=== PATIENT | female | born 1960 | race Caucasian/White ===

== ENCOUNTER → 2017-05-29 | Outpatient (CLI) | payer BC ==
[~2017-05-29] MED LIST: CETI10TA17 PO; CHLO-159 PO; ESTR1TAB24 PO; FEXO180T PO; FLX10C PO; MEDR2.5T6 PO; RNT150T PO
--- NOTE | 2017-05-29 14:50 | Diagnostic Imaging Report ---
INDICATION: Cough. TECHNIQUE: PA and lateral views of the chest were obtained. FINDINGS: The heart size, mediastinal configuration, and pulmonary vascularity are within normal limits. There is no pleural effusion, pneumothorax, or pneumonia. The osseous structures are unremarkable. IMPRESSION: No acute cardiopulmonary abnormality. Dictated by: Dictated on workstation # [id number]
--- NOTE | 2017-05-30 12:56 | Diagnostic Imaging Report ---
EXAMINATION: Digital mammogram bilateral screening. INDICATION: Screening. COMPARISON: 06/23/2015, 06/22/2014, 06/09/2013, and 05/27/2012. PERSONAL HISTORY: At this time, there are no current complaints. FINDINGS: The fibroglandular tissue in both breasts is dense. This does limit the sensitivity of this exam. As noted on the previous study, there are numerous calcifications scattered throughout the lateral aspect of each breast. These calcifications seem stable. The prior exam did suggest a nodular density deep in the left breast. That finding is again evident and does not seem to have changed significantly since the prior exam of 06/22/2014. The tomographic images suggest that this has a fairly smooth margin. I would recommend that ultrasound be performed to better characterize this finding. There is no primary or secondary sign of malignancy noted otherwise. IMPRESSION: Ultrasound would be recommended for further evaluation of the nodular density in the upper-outer aspect of the left breast. ACR BI-RADS Category 0: Incomplete. (Needs additional imaging evaluation). Result letter will be mailed to the patient. Note: At least 10% of breast cancer is not imaged by mammography. Dictated on workstation # [id number]
== END ==
LOC: RAD 14:28
PROVIDERS: ATTEND Obstetrics & Gynecology
DX: Z12.31 Encounter for screening mammogram for malignant neoplasm of breast (principal); R05 Cough
CPT/HCPCS: 71046; 77067

== ENCOUNTER → 2017-10-25 | Outpatient (CLI) | payer BC ==
--- NOTE | 2017-10-25 22:37 | Diagnostic Imaging Report ---
INDICATION: Abnormal mammogram. EXAMINATION: Ultrasound of the left breast. FINDINGS: The screening mammogram performed on 05/29/2017 noted a 1.5 cm nodular density deep in the left breast. This finding was felt to most likely benign but ultrasound was recommended to better characterize this density. On this study, however, there is no discrete solid or cystic mass evident. It is conceivable that the density seen on the mammogram was secondary to fibroglandular tissue alone although it does have the mammographic appearance of a discrete nodule. It is possible this was a cyst which has subsequently resolved. It may prove worthwhile to repeat the mammogram to determine whether that nodular density has changed.. IMPRESSION: 1. The apparent nodular density seen on the mammogram could not be identified on this study. Considerations and recommendations as above. 2. These results were discussed with Dr. Tucker Nunez. ACR BI-RADS Category 0: Incomplete. (Needs additional imaging evaluation). Result letter will be mailed to the patient. Note: At least 10% of breast cancer is not imaged by mammography. Dictated by: Dictated on workstation # [id number]
== END ==
LOC: RAD 11:51
PROVIDERS: ATTEND Obstetrics & Gynecology
DX: R92.8 Other abnormal and inconclusive findings on diagnostic imaging of breast (principal)
CPT/HCPCS: 76642

== ENCOUNTER → 2018-07-29 | Outpatient (CLI) | payer BC ==
--- NOTE | 2018-07-29 21:57 | Diagnostic Imaging Report ---
INDICATION: Routine screening. Comparison is made with prior mammogram from 05/29/2017 and 06/23/2015. 2-D and 3-D bilateral screening mammography was performed with a Computer Aided Detection (CAD) system. FINDINGS: Both breasts remain heterogeneously dense, limiting the sensitivity of mammography. Overall breast parenchymal pattern is stable. There are innumerable microcalcifications in the upper and outer portions of both breasts, limiting the sensitivity of mammography. A rounded density is less prominent in the left breast. No new mass is seen. Axillae are unremarkable. IMPRESSION: Stable bilateral mammograms when compared with prior exams. ACR BI-RADS Category 2: Benign findings. Result letter will be mailed to the patient. Note: At least 10% of breast cancer is not imaged by mammography. Dictated by: Dictated on workstation # [id number]
== END ==
LOC: RAD 12:11
PROVIDERS: ATTEND Obstetrics & Gynecology
DX: Z12.31 Encounter for screening mammogram for malignant neoplasm of breast (principal)
CPT/HCPCS: 77067

== ENCOUNTER 2018-09-23 08:52 | Outpatient (CLI) | payer BC ==
[~2018-09-23] VITALS: Ht 162.6 cm; Wt 59.0 kg
[2018-09-23] MEDS ORDERED: ATOR10TA66 PO (11:31)
[2018-09-23] MEDS ORDERED: CHOL100045 PO (11:31)
[2018-09-23] MEDS ORDERED: RANI150T11 PO (11:31)
[2018-09-23] MEDS ORDERED: ESTR1TAB24 PO (11:31)
[2018-09-23] MEDS ORDERED: CHLO4TAB36 PO (11:31)
[2018-09-23] MEDS ORDERED: TEST75GE7 TD (11:31)
[2018-09-23] MEDS ORDERED: ESCI10TA PO (11:31)
[2018-09-23] MEDS ORDERED: OMEG100032 PO (11:31)
[2018-09-23] MEDS ORDERED: CETI10TA17 PO (11:31)
[2018-09-23] MEDS ORDERED: MULT-240 PO (11:31)
== END 2018-09-23 11:36 | disposition home or self-care (01) ==
LOC: PREOP 08:52
PROVIDERS: ATTEND Obstetrics & Gynecology
DX: Z01.818 Encounter for other preprocedural examination (principal)

== ENCOUNTER 2018-10-01 11:10 | Day surgery (SDC) | payer BC ==
[~2018-10-01] VITALS: Ht 162.6 cm; Wt 59.0 kg
[2018-10-01] VITALS (15 sets, daily range): BP systolic 89–133; BP diastolic 55–80
--- NOTE | 2018-10-01 07:42 | Progress Note-Post Operative ---
Post-Operative Progess Note Surgeon (s)/Metal Bumper (s) Surgeon YENNY LEONARDO MD Metal Bumper: Yarelis Samaniego Pre-Operative Diagnosis Dysfunctional uterine bleeding/menorrhagia Post-Operative Diagnosis Same with extensive pelvic adhesions and with markedly abnormal appendix and with pathology pending Procedure & Operative Findings Date of Procedure 10/01/18 Procedure Performed/Findings TL H with BSO, extensive adhesiolysis, LAPAROscopic appendectomy Anesthesia Type GETA Estimated Blood Loss Estimated blood loss (mL): Minimal Specimens/Packing Specimens Removed Uterus and fallopian tubes and ovaries, appendix Packing: None YENNY LEONARDO MD October 01, 2018 07:42
--- NOTE | 2018-10-01 07:42 | Progress Note-Pre Operative ---
Pre-Operative Progress Note H&P Reviewed The H&P was reviewed, patient examined and no changes noted. Patient specifically requests BSO and would like appendix removed. Fully discussed both. Date Seen by Provider: October 01, 2018 Time Seen by Provider: 13:12 Date H&P Reviewed: October 01, 2018 Time H&P Reviewed: 13:12 Pre-Operative Diagnosis: Dysfunctional uterine bleeding/menorrhagia YENNY LEONARDO MD October 01, 2018 07:42
--- NOTE | 2018-10-01 07:47 | Discharge Instructions ---
Discharge Instructions Discharge Medications New, Converted or Re-Newed RX: RX on Chart Patient Instructions Patient Instructions: As directed Return to The Hospital For: As directed Activity & Diet Discharge Diet: No Restrictions Activity as Tolerated: No Orders-Post D/C & Referrals Follow Up Appt: Return to clinic on Saturday, October 03, 2018 at 930 a.m. for staple removal Call to make follow up appt. for patient in 4 weeks. Activity: Rest for 24 hours, than as tolerated. Wound Care: May remove Band-Aid tomorrow. Replace as desired. Keep incisions clean and dry. Wash daily with soap and water. Please call in RX to patient pharmacy. Diet: As tolerated-Clear Liquids only if nauseated. may shower or tub bathe as desired. No driving for 24 hours, no alcoholic beverages for 24 hours, and nothing per vagina (no tampons, douching, or intercourse) for 8 weeks. Patient to return to the clinic as soon as possible for: Temperature greater than 101F, Severe Pain, Foul discharge from incision or vagina, Excessive Bleeding (more than a period). YENNY LEONARDO MD October 01, 2018 07:47
[~2018-10-01 11:10] MED LIST changes: +ATOR10TA66 PO; +CHLO4TAB36 PO; +CHOL100045 PO; +DOCU-143 PO; +ESCI10TA PO; +ESTR1TAB27 PO; +IBUP-1780 PO; +MULT-240 PO; +OMEG100032 PO; +OXYC1TAB87 PO; +RANI150T11 PO; +TEST75GE7 TD
--- OUTSIDE RECORDS SUMMARY | 2018-10-01 11:13 | XMS REPORT | Continuity of Care Document ---
Author Organization Unknown Address Unknown Allergies Active Description Code Type Severity Reaction Onset Reported/Identified Relationship to Patient Clinical Status Yes No Known Drug Allergies [id number] Drug Allergy Unknown N/A 2013 Medications There is no data. 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 2013 MICHAEL DISLA MD Ot 553.3 DIAPHRAGMATIC HERNIA 2013 MICHAEL DISLA MD Ot V76.51 SCREEN MAL NEOP-COLON 07/08/2014 YENNY LEONARDO MD Ot V76.12 06/29/2015 YENNY LEONARDO MD Ot Z12.31 07/07/2015 YENNY LEONARDO MD Ot Z12.31 05/24/2017 Ot 793.82 INCONCLUSIVE MAMMOGRAM 05/24/2017 Ot V76.12 OTH SCREEN MAMMO-MALIGN NEOPLASM OF [place] 05/24/2017 NAIF RODRIGUEZ, MICHAEL Sandoval Ot V72.84 EXAM PRE-OPERATIVE NOS 05/28/2017 YENNY LEONARDO MD Ot 793.82 INCONCLUSIVE MAMMOGRAM 05/28/2017 YENNY LEONARDO MD Ot V76.12 OTH SCREEN MAMMO-MALIGN NEOPLASM OF [place] 05/28/2017 YENNY LEONARDO MD Ot V76.12 OTH SCREEN MAMMO-MALIGN NEOPLASM OF [place] 05/28/2017 YENNY LEONARDO MD Ot Z12.31 ENCNTR SCREEN MAMMOGRAM FOR MALIGNANT NE 05/29/2017 YENNY LEONARDO MD Ot R05 COUGH 05/29/2017 YENNY LEONARDO MD Ot Z12.31 ENCNTR SCREEN MAMMOGRAM FOR MALIGNANT NE 06/12/2017 YENNY LEONARDO MD, Ot R05 COUGH 06/12/2017 YENNY LEONARDO MD Ot Z12.31 ENCNTR SCREEN MAMMOGRAM FOR MALIGNANT NE 11/13/2017 YNENY LEONARDO MD Ot R92.8 OTH ABN AND INCONCLUSIVE FINDINGS ON DX 11/26/2017 Ot 780.79 11/26/2017 Ot 780.79 11/26/2017 Ot 789.01 ABDOMINAL PAIN, RIGHT UPPER QUADRANT 11/26/2017 Ot V76.12 OTH SCREEN MAMMO-MALIGN NEOPLASM OF [place] 11/26/2017 Ot 789.01 ABDOMINAL PAIN, RIGHT UPPER QUADRANT 11/26/2017 Ot 793.82 INCONCLUSIVE MAMMOGRAM 11/26/2017 Ot V76.12 OTH SCREEN MAMMO-MALIGN NEOPLASM OF [place] 11/26/2017 MICHAEL DISLA MD Ot V72.84 EXAM PRE-OPERATIVE NOS 11/26/2017 YENNY LEONARDO MD Ot 793.82 INCONCLUSIVE MAMMOGRAM 11/26/2017 YENNY LEONARDO MD Ot V76.12 OTH SCREEN MAMMO-MALIGN NEOPLASM OF [place] 11/26/2017 YENNY LEONARDO MD Ot V76.12 OTH SCREEN MAMMO-MALIGN NEOPLASM OF [place] 11/26/2017 YENNY LEONARDO MD Ot Z12.31 ENCNTR SCREEN MAMMOGRAM FOR MALIGNANT NE 11/26/2017 YENNY LEONARDO MD Ot R05 COUGH 11/26/2017 YENNY LEONARDO MD Ot Z12.31 ENCNTR SCREEN MAMMOGRAM FOR MALIGNANT NE 11/26/2017 YENNY LEONARDO MD Ot R92.8 OTH ABN AND INCONCLUSIVE FINDINGS ON DX 11/26/2017 Ot 780.79 11/26/2017 Ot 780.79 11/26/2017 Ot 789.01 ABDOMINAL PAIN, RIGHT UPPER QUADRANT 11/26/2017 Ot V76.12 OTH SCREEN MAMMO-MALIGN NEOPLASM OF [place] 11/26/2017 Ot 789.01 ABDOMINAL PAIN, RIGHT UPPER QUADRANT 11/26/2017 Ot 793.82 INCONCLUSIVE MAMMOGRAM 11/26/2017 Ot V76.12 OTH SCREEN MAMMO-MALIGN NEOPLASM OF [place] 11/26/2017 MICHAEL DISLA MD Ot V72.84 EXAM PRE-OPERATIVE NOS 11/26/2017 YENNY LEONARDO MD, Ot 793.82 INCONCLUSIVE MAMMOGRAM 11/26/2017 YENNY LEONARDO MD, Ot V76.12 OTH SCREEN MAMMO-MALIGN NEOPLASM OF [place] 11/26/2017 YENNY LEONARDO MD, Ot V76.12 OTH SCREEN MAMMO-MALIGN NEOPLASM OF [place] 11/26/2017 YENNY LEONARDO MD, Ot Z12.31 ENCNTR SCREEN MAMMOGRAM FOR MALIGNANT NE 11/26/2017 YENNY LEONARDO MD Ot R05 COUGH 11/26/2017 YENNY LEONARDO MD, Ot Z12.31 ENCNTR SCREEN MAMMOGRAM FOR MALIGNANT NE 11/26/2017 YENNY LEONARDO MD, Ot R92.8 OTH ABN AND INCONCLUSIVE FINDINGS ON DX 07/30/2018 YENNY LEONARDO MD, Ot Z12.31 ENCNTR SCREEN MAMMOGRAM FOR MALIGNANT NE 09/23/2018 YENNY LEONARDO MD, Ot Z01.818 ENCOUNTER FOR OTHER PREPROCEDURAL EXAMIN Procedures There is no data. Results There is no data. Encounters ACCT No. Visit Date/Time Discharge Status Pt. Type Provider Facility Loc./Unit Complaint [id number] 09/23/2018 08:52:00 09/23/2018 23:59:59 CLS Outpatient YENNY LEONARDO MD [facility] PREOP POST MENOPAUSAL BLEEDING [id number] 07/29/2018 12:11:00 07/29/2018 23:59:59 CLS Outpatient YENNY LEONARDO MD [facility] RAD SCREENING [id number] 11/04/2017 12:30:00 11/04/2017 23:59:59 CLS Preadmit YENNY LOENARDO MD [facility] RAD ABNORMAL MAMMO [id number] 10/25/2017 11:51:00 10/25/2017 23:59:59 CLS Outpatient YENNY LEONARDO MD [facility] RAD ABNORMAL MAMMOGRAM [id number] 05/29/2017 14:28:00 05/29/2017 23:59:59 CLS Outpatient YENNY LEONARDO MD [facility] RAD SCREENING, COUGH [id number] 06/23/2015 10:29:00 06/23/2015 23:59:59 CLS Outpatient YENNY LEONARDO MD [facility] RAD SCREENING [id number] 06/22/2014 11:18:00 06/22/2014 23:59:59 CLS Outpatient YENNY LEONARDO MD [facility] RAD SCREENING [id number] 06/09/2013 11:39:00 06/09/2013 23:59:59 CLS Outpatient YENNY LEONARDO MD [facility] RAD SCREENING [id number] 2013 08:04:00 2013 11:00:00 DIS [facility] [id number] 04/09/2013 10:22:00 04/09/2013 23:59:59 CLS Outpatient MICHAEL DISLA MD [facility] PREOP SCREENING/DYSPHAGIA [id number] 10/01/2018 13:00:00 PEN Preadmit YENNY LEONARDO MD [facility] SD POST MENOPAUSAL BLEEDING [id number] 05/28/2017 08:52:00 Document Registration [id number] 05/27/2012 11:24:00 Document Registration [id number] 05/03/2009 07:43:00 Document Registration [id number] 05/02/2009 08:22:00 Document Registration [id number] 03/21/2007 12:43:00 Document Registration [id number] 08/23/2006 06:55:00 Document Registration [id number] 08/30/2005 07:08:00 Document Registration
[2018-10-01] MEDS ORDERED: BUP/EPI 0.5% 1:200,000 (SENSORCAINE) 30 ML VIAL ONE (11:24)
[2018-10-01] MEDS ORDERED: ceFAZolin INJECTION 1,000 MG in WATER (STERILE) FOR INJECTION 10 ML IV ONE (11:30)
[2018-10-01 11:43] LABS: BASOPHILS % (AUTO) 1 % (0-10); EOSINOPHILS # (AUTO) 0.1 10^3/uL (0.0-0.3); EOSINOPHILS % (AUTO) 2 % (0-10); HEMATOCRIT 40 % (35-52); LYMPHOCYTES # (AUTO) 1.9 X 10^3 (1.0-4.0); LYMPHOCYTES % (AUTO) 31 % (12-44); MEAN CORPUSCULAR HEMOGLOBIN 28 PG (25-34); MEAN CORPUSCULAR HGB CONC 33 G/DL (32-36); MEAN CORPUSCULAR VOLUME 87 FL (80-99); MEAN PLATELET VOLUME 9.8 FL (7.4-10.4); MONOCYTES # (AUTO) 0.5 X 10^3 (0.0-1.0); MONOCYTES % (AUTO) 8 % (0-12); NEUTROPHILS # (AUTO) 3.6 X 10^3 (1.8-7.8); NEUTROPHILS % (AUTO) 59 % (42-75); PLATELET COUNT 244 10^3/uL (130-400); WHITE BLOOD COUNT 6.1 10^3/uL (4.3-11.0)
[2018-10-01] MEDS ORDERED: SCOPOLAMINE 1.5 MG (TRANSDERM-SCOP) PATCH TOP ONE (11:45)
[2018-10-01] MEDS ORDERED: ONDANSETRON 4 MG/2 ML (SDV) Z0FRAN IV ONE (11:45)
[2018-10-01] MEDS ORDERED: FAMOTIDINE 20MG/2ML IV (PEPCID) IV ONE (11:45)
[2018-10-01] MEDS ORDERED: KETOROLAC 30 MG/ML VIAL ONE (11:59)
[2018-10-01] MEDS ORDERED: SEVOFLURANE (ULTANE) 15 ML INHAL SOLN ONE ×8 (11:59→12:11)
[2018-10-01] MEDS ORDERED: proPOfol 200 MG/20 ML (DIPRIVAN) VIAL IV ONE (11:59)
[2018-10-01] MEDS ORDERED: LIDOCAINE PF 2% 5 ML (XYLOCAINE) VIAL ONE (11:59)
[2018-10-01] MEDS ORDERED: ONDANSETRON 4 MG/2 ML (SDV) Z0FRAN ONE (11:59)
[2018-10-01] MEDS ORDERED: DEXAMETHASONE 10 MG/ML (DECADRON) 1 ML VIAL ONE (11:59)
[2018-10-01] MEDS ORDERED: ROCURONIUM 10 MG/ML 5 ML SYRINGE IV ONE (11:59)
[2018-10-01] MEDS ORDERED: fentaNYL INJECTION 100 MCG/2 ML AMP ONE (11:59)
[2018-10-01] MEDS ORDERED: MIDAZOLAM 2 MG/2 ML (VERSED) VIAL ONE (12:00)
[2018-10-01] MEDS ORDERED: SUCCINYLCHOLINE INJ 100 MG/5 ML SYR ONE (12:00)
[2018-10-01] MEDS: LACTATED RINGERS 1,000 ML IV PRN ×2 (12:08→13:31)
[2018-10-01] MEDS ORDERED: LIDOCAINE JELLY 2% 6 ML SYRINGE ONE (12:11)
[2018-10-01] MEDS ORDERED: NEOSTIGMINE 1 MG/ML 5 ML SYRINGE ONE (12:12)
[2018-10-01] MEDS ORDERED: GLYCOPYRROLATE 0.2 MG/ML (ROBINUL) 2 ML VIAL ONE (12:12)
[2018-10-01] MEDS ORDERED: ONDANSETRON 4 MG/2 ML (SDV) Z0FRAN IVP PRN ×2 (15:15→15:30)
[2018-10-01] MEDS ORDERED: PROMETHAZINE INJ 25 MG/ML (PHENERGAN) AMP IVP ONE (15:15)
[2018-10-01] MEDS ORDERED: fentaNYL INJECTION 100 MCG/2 ML AMP IVP ONE (15:15)
[2018-10-01] MEDS ORDERED: HYDROmorphone 2 MG/ML VIAL (DILAUDID) IV ONE (15:15)
[2018-10-01] MEDS ORDERED: morphine INJ 10 MG/ML 1ML (SYR OR VIAL) IVP ONE (15:15)
[2018-10-01] MEDS ORDERED: ESTROGENS CONJ IV 25 MG/5 ML (PREMARIN) VIAL ONE (15:20)
[2018-10-01] MEDS ORDERED: WATER (STERILE) FOR INJECTION 10 ML ONE (15:20)
[2018-10-01] MEDS ORDERED: KETOROLAC 30 MG/ML VIAL IVP SCH (15:30)
[2018-10-01] MEDS ORDERED: MEPERIDINE (DEMEROL) INJ 100 MG/ML IM PRN (15:30)
[2018-10-01] MEDS ORDERED: WATER (STERILE) FOR INJ 10 ML BTL INJ ONE (15:30)
[2018-10-01] MEDS ORDERED: PROMETHAZINE INJ 25 MG/ML (PHENERGAN) AMP IM PRN (15:30)
[2018-10-01] MEDS ORDERED: ESTROGENS CONJ IV 25 MG/5 ML (PREMARIN) VIAL IVP ONE (15:30)
[2018-10-01] MEDS ORDERED: oxyCODONE/APAP 5/325MG (PERCOCET 5) TABLET PO PRN (15:30)
[2018-10-01] MEDS ORDERED: ESTROGENS CONJ IV 25 MG/5 ML (PREMARIN) VIAL IM ONE (15:30)
--- NOTE | 2018-10-01 16:05 | NUR ---
MICHAEL GARCIA admitted to room 3306-1 VIA PT BED ACC BY [facility] AFTER A ROBOTIC ASSISTED TOTAL LAPAROSCOPIC HYSTERECTOMY WITH BILATERAL OOPHORECTOMY, APPENDECTOMY, AND LYSIS OF ADHESIONS BY DR. LEONARDO.MICHAEL GARCIA introduced to surroundings, call light, bed controls, phone, TV, temperature control, lights, meal times, smoking policy, visitor policy, side rail policy, bathrooms and showers. Patient Rights given to patient in the handbook.
[2018-10-01] MEDS ORDERED: D5 LR IV SOLUTION 1,000 ML IV ONE (16:12)
--- NOTE | 2018-10-01 16:30 | NUR ---
O2 STARTED AT 2L/M/NC R/T PT BEING DROWSY AND PLAN TO GIVE DEMEROL. SPOUSE AT BEDSIDE. CONTINUOUS SPO2 MONITORING.
[2018-10-01] MEDS: D5 LR IV SOLUTION 1,000 ML IV SCH (16:40)
--- NOTE | 2018-10-01 17:30 | NUR ---
SLEEPING SOUNDLY. AROUSES WHEN SPOKEN TO.
--- NOTE | 2018-10-01 18:05 | NUR ---
Report received from Jaime Harrington RN
--- NOTE | 2018-10-01 20:20 | OPERATIVE REPORT ---
DATE OF SERVICE: 10/01/2018 PREOPERATIVE DIAGNOSES: Dysfunctional uterine bleeding, menorrhagia and pelvic pain. 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 OPERATIVE PROCEDURE: Total laparoscopic hysterectomy with bilateral salpingo-oophorectomy as well as adhesiolysis and laparoscopic appendectomy. OPERATIVE DESCRIPTION: With the patient in the supine position under satisfactory general anesthesia, she was repositioned in the dorsal lithotomy position in the Solis stirrups then prepped and draped in the usual fashion for abdominal and vaginal surgery using da Karyna equipment. Weighted speculum placed in posterior fornix of vagina, cervix exposed and grasped anteriorly with single tooth tenaculum. Uterus was sounded to 8.5 cm with the uterine sound. The cervix was then serially dilated with Efraín dilators to accommodate a Eliana II manipulator, which was placed using a 6 mm x 8 cm uterine probe and a 25 mm colpotomy ring. The cervix was affixed to the manipulator with sutures of #1 Vicryl placed at 3 and 9 o'clock position of the cervix. Garnica catheter was placed in the urinary bladder. The patient was brought in low dorsal lithotomy position. A 12 mm incision was made 4 cm superior to the umbilicus. Veress needle was placed through that incision into the abdominal cavity and correct placement confirmed with a water drop test. The abdomen insufflated with 2.4 liters of carbon dioxide and the Veress needle was removed and a 12 mm Optiview laparoscopic port placed. The abdominal wall was transilluminated and ports of 8 mm were placed 8 cm lateral to the umbilicus at the level of the umbilicus. All three port sites were infiltrated with 0.5% Marcaine with epinephrine prior to incision and port placement. The pelvis was examined. There was extensive thickening and fibrosis of the peritoneum particularly on the left IP ligament and the left tube and ovary were adherent to the IP ligament and to each other and to the pelvic sidewall, the left ureter could not be seen through the peritoneum. Because of the thickened distorted anatomy on the left side of the pelvis the right ureter was freely visible. Both ovaries were atretic appearing. Both fallopian tubes were somewhat fibrotic and tortuous and showed a distal clubbing. The uterus was extensively involved with mottling in appearance consistent with adenomyosis. The appendix was distorted almost coiled on itself with fibrosis and adhesions. Decision was made to remove the appendix with the uterus and the tubes and ovaries. Attention was first turned to the extensive adhesions on the IP ligament and the left pelvic side wall with very careful and meticulous dissection the peritoneum was divided. The adhesions were taken free allowing the anatomy to fall back and returned to a more normal appearance. In doing so, the peritoneal leaf was resected medial and dissected medially exposing the ureter under the area of this as part of the adhesions. This allowed the ureter to drop free of those adhesions and clear itself from any trauma. With the ureter completely freed and the IP ligament could be skeletonized and the peritoneum could be opened over to the side of the uterus allowing for complete visualization of the route of the ureter, which was well out of the way of the dissection. Attention was then turned to the anterior lower uterine segment where the bladder would have been advanced up onto the anterior surface of the uterus. Apparently from her very very careful meticulous and extensive dissection was taken to free the bladder from the anterior surface of the uterus and dissected down off of the uterus, down off the cervix and then exposed the vaginal wall over the colpotomy ring for eventually the hysterectomy. With this done, the vessel sealer was replaced in the right as the right instrument and the IP ligament was clamped, cauterized and divided that was continued stepwise across the mesovarium and then across the round ligament, broad ligament down on to the cardinal ligament. The same procedure performed on the left, allowing for removal of both tubes and ovaries eventually with the uterus. Anterior lower uterine segment was exposed, this already been dissected free with the bladder down out of the way. Colpotomy incision was started at 12 o'clock position onto the colpotomy ring. An incision was continued circumferentially until the entire colpotomy ring was exposed allowing for removal of the uterus with the tubes and ovaries still attached through the vagina. This was done with some difficulty due to the size and nature and fibrosis of the uterus and the relatively small cervix and vaginal opening. With the uterus eventually removed. The vaginal cuff was closed with a single suture of V-Loc barbed suture starting from the right angle and continuing completely across the vaginal cuff taking care to include the uterine vessel pedicles with the first couple of stitches then with the last couple of stitches. Good reapproximation was achieved. Good support was achieved on to the round ligament and good hemostasis was achieved. The second suture was used just to reperitonealize the pelvis. Both ureters were seemed to peristalse during the entire procedure. After the left ureter had been dissected and exposed, the pelvis was irrigated and examined. Hemostasis was complete. There was no abnormal pathology. Both ureters were again seemed to freely peristalse. The urine remained clear. Attention was now turned to the appendix. The appendix was grasped and elevated. The appendix was quite shortened and fibrotic and distally up on itself. The mesoappendix was divided across to the base of the appendix. There was a blood vessel at the base of the appendix that required cauterization to affect hemostasis. Once that was done, the da Karyna portion of the procedure was halted. The da Karyna instruments were removed. The column was undocked and removed from the patient and then using a 5 mm conventional scope in the left lateral port, a grasper in the right lateral port and the speculum in the umbilical port the appendix was grasped and elevated. The staple was placed across the base of the appendix and fired, removing the appendix from its attachments. The appendix was then placed in an Endobag brought out through the umbilical and sent to pathology for permanent section. The stump of the appendix as well as the pelvis was copiously irrigated and examined for hemostasis. That being complete with no remaining abnormal pathology and hemostasis assured. The stump of the appendix was treated with several drops of Betadine solution. Then, the operative instruments removed under direct vision. No bleeding noted. The abdomen was evacuated of the insufflating gas in the process of removing the ports. The skin incisions were stapled after closing the fascia at the supraumbilical incision with [id number] suture of 2-0 Vicryl. Speculum was replaced in the vagina. The vaginal cuff was examined and found completely hemostatic and completely reapproximated. The patient continued to release clear urine. Sponge and needle counts were correct. Estimated blood loss was minimal. The patient tolerated the procedure well and was uneventfully awakened from her general anesthesia and transferred to the recovery room in stable condition. Job ID: [id number] DocumentID: [id number] Dictated Date: 10/01/2018 15:05:44 Inker Machine Date: 10/01/2018 20:20:04 Dictated By: YENNY LEONARDO MD
--- NOTE | 2018-10-01 20:30 | NUR ---
Dr. Nunez called to check on pt, update given, new orders rc'd to D/C f/c in am if adequate U.O. & urine cont. to be clear.
[2018-10-01] MEDS: KETOROLAC 30 MG/ML VIAL IVP SCH (21:06)
[2018-10-02 00:35] VITALS: BP 88/55
[2018-10-02] MEDS: D5 LR IV SOLUTION 1,000 ML IV SCH ×2 (00:36→09:49)
[2018-10-02 02:30] VITALS: BP 90/54
[2018-10-02 04:30] VITALS: BP 91/56
[2018-10-02] MEDS: KETOROLAC 30 MG/ML VIAL IVP SCH (06:35)
--- NOTE | 2018-10-02 07:00 | NUR ---
REPORT FROM GUNNAR ROLAND.
--- NOTE | 2018-10-02 07:01 | Anesthesia-General Post-Op ---
General Patient Condition Mental Status/LOC: Same as Preop Cardiovascular: Satisfactory Nausea/Vomiting: Absent Respiratory: Satisfactory Pain: Controlled Complications: Absent Post Op Complications Complications None Follow Up Care/Instructions Patient Instructions None needed. Anesthesia/Patient Condition Patient Condition Patient is doing well, no complaints, stable vital signs, no apparent adverse anesthesia problems. No complications reported per nursing. D/C home per [facility] Criteria: Yes NERY ALMENDAREZ CRNA October 02, 2018 07:01
--- NOTE | 2018-10-02 07:52 | Progress Note-Standard ---
Standard Progress Note Progress Notes/Assess & Plan Date Seen by a Provider: October 02, 2018 Time Seen by a Provider: 07:52 Progress/Assessment & Plan This patient is without complaint. She is ambulating, tolerating oral intake well and has good pain control. She has not voided yet he denies chest pain, nausea, denies nausea vomiting, and denies headache. Vital Signs Date Time Temp Pulse Resp B/P (MAP) Pulse Ox O2 Delivery O2 Flow Rate FiO2 10/02/18 04:30 99.0 57 16 91/56 (68) 100 Nasal Cannula 2.00 10/02/18 02:30 62 16 90/54 (66) 100 Nasal Cannula 2.00 10/02/18 00:35 99.2 62 16 88/55 (66) 100 Nasal Cannula 2.00 10/01/18 22:30 99.3 65 16 89/60 (70) 99 Nasal Cannula 2.00 10/01/18 20:00 95 Nasal Cannula 2.00 10/01/18 19:30 99.2 71 16 93/56 (68) 98 Nasal Cannula 2.00 10/01/18 19:12 95 Nasal Cannula 2.00 10/01/18 18:00 80 16 105/62 (76) 98 Nasal Cannula 2.00 10/01/18 17:30 73 16 92/57 (69) 98 Nasal Cannula 2.00 10/01/18 17:00 59 16 106/68 (81) 98 Nasal Cannula 2.00 10/01/18 16:30 59 16 108/73 (85) 97 Nasal Cannula 2.00 10/01/18 16:23 98.4 68 16 109/68 (82) 98 Room Air 10/01/18 16:05 97.5 20 96 Room Air 10/01/18 15:50 20 96 Room Air 10/01/18 15:40 20 100 OxyMask 3 10/01/18 15:30 16 100 OxyMask 6 10/01/18 15:20 16 100 OxyMask 6 10/01/18 15:10 16 100 OxyMask 6 10/01/18 15:07 97.4 12 100 OxyMask 6 10/01/18 11:17 98.5 60 16 117/80 (92) 100 Room Air I & O 10/02/18 07:00 Intake Total 3310 ml Output Total 1015 ml Balance 2295 ml Signs stable. Patient is normal. The abdomen is benign. Extremities no cyanosis. There is no Homans sign. Assessment and plan postoperative day number 1 doing well. Plans for discharge home with follow-up in clinic Final Diagnosis DUB/menorrhagia YENNY LEONARDO MD October 02, 2018 07:52
[2018-10-02 08:15] VITALS: BP 85/51
--- NOTE | 2018-10-02 08:30 | NUR ---
INITIAL ASSESSMENT COMPLETED, SEE INTERVENTIONS FOR DETAILED ASSESSMENTS.
--- NOTE | 2018-10-02 08:30 | NUR ---
PT UP TO BR, VOIDED WITHOUT DIFFICULTY.
[2018-10-02] MEDS: ESTRADIOL 1 MG TAB (ESTRACE) PO SCH ×2 (09:10→09:11)
[2018-10-02] MEDS: DOCUSATE SODIUM 100 MG (COLACE) CAP PO SCH ×2 (09:10→09:11)
--- NOTE | 2018-10-02 10:15 | NUR ---
D/C INSTRUCTIONS EXPLAINED AND SIGNED BY PT, PT DENIES QUESTIONS OR CONCERNS, VERBALIZES UNDERSTANDING OF FOLLOW UP CARE AND INSTRUCTIONS.
--- NOTE | 2018-10-02 10:40 | NUR ---
PT DISCHARGED TO HOME, TAKEN BY WC TO PRIVATE CAR WITH [employer] ARCHITECT AND AT SIDE, NO DISTRESS NOTED.
[2018-10-02] MEDS ORDERED: ACETAMINOPHEN 500 MG TAB (TYLENOL) PO PRN (11:00)
[2018-10-02] MEDS ORDERED: IBUPROFEN 800 MG (MOTRIN) TAB PO SCH (15:00)
== END 2018-10-02 10:40 | disposition home or self-care (01) ==
LOC: SDC 11:10 → WS 16:10 → SDC 10-02 10:40
PROVIDERS: ATTEND Obstetrics & Gynecology
DX: C54.1 Malignant neoplasm of endometrium (principal); N80.0 Endometriosis of uterus; N80.5 Endometriosis of intestine; N93.8 Other specified abnormal uterine and vaginal bleeding; N92.0 Excessive and frequent menstruation with regular cycle; N83.8 Other noninflammatory disorders of ovary, fallopian tube and broad ligament; N94.89 Other specified conditions associated with female genital organs and menstrual cycle; K21.9 Gastro-esophageal reflux disease without esophagitis; K44.9 Diaphragmatic hernia without obstruction or gangrene; Z79.899 Other long term (current) drug therapy
CPT/HCPCS: 36415; 85025; 86850; 86900; 86901; 87081; 94664

== ENCOUNTER 2018-12-01 05:45 | Outpatient (CLI) | payer BC ==
[~2018-12-01] VITALS: Ht 162.6 cm; Wt 59.0 kg
== END 2018-12-01 13:41 | disposition home or self-care (01) ==
LOC: PREOP 05:45
PROVIDERS: ATTEND Internal Medicine
DX: Z01.818 Encounter for other preprocedural examination (principal)

== ENCOUNTER 2018-12-05 07:01 | Day surgery (SDC) | payer BC ==
--- NOTE | 2018-11-20 14:28 | HISTORY AND PHYSICAL ---
DATE OF SERVICE: PANENDOSCOPY HISTORY AND PHYSICAL HISTORY OF PRESENT ILLNESS: The patient is a 58-year-old white female, who presented to set up screening colonoscopy. She is on a little shorter screening interval due to the fact that her father was diagnosed with colon cancer at the age of 63 and at that age secondary to colon cancer. She is not aware of any subsequent history for colon cancer. Mother recently did have a precancerous polyp removed per her report, now living in her early 80s. Father is still living at the age of 90. There is no other family history for cancer. She reports that she has been having increased problems with epigastric abdominal pain despite b.i.d. Zantac. She has a past history of reflux and reports small hiatal hernia. She denies dysphagia. She has noted no bright red blood per rectum or melena. PAST SURGICAL HISTORY: For postmenopausal bleeding, she underwent total abdominal hysterectomy and bilateral salpingo-oophorectomy on 10/05/2018. She reports she has not completely recovered from an energy level standpoint and is still having a little bit of abdominal distention, although she denies diarrhea or constipation. She was initially felt to have early uterine cancer, noted post-biopsy but on referral to , there pathologist did not feel that cancer was present. She is going up to discuss this further the following week. She has had no postoperative bleeding. She has had abdominoplasty many years ago. She also had breast reduction surgery at the age of 20. PAST MEDICAL HISTORY: Significant for hyperlipidemia and reported reflux. MEDICATIONS ON ADMISSION: Lipitor 10 mg daily, Lexapro 10 mg daily, estradiol unknown dose daily and Zantac 150 mg b.i.d. as well as vitamin D and fish oil with multiple vitamin. REVIEW OF SYSTEMS: CONSTITUTIONAL: She has had no night sweats, chills, fever or weight change. CARDIOVASCULAR: She denies chest pain, shortness of breath, syncope, presyncope, orthopnea, PND or pedal edema. PULMONARY: She has had no cough, wheezing or shortness of breath. GASTROINTESTINAL: As noted in the HPI. PHYSICAL EXAMINATION: GENERAL: Reveals a normal weight well-appearing white female in no acute distress. VITAL SIGNS: Weight was 133.4 pounds, blood pressure 120/76, heart rate 72 and regular. HEENT: Unremarkable. Sclerae nonicteric. NECK: Revealed no JVD, adenopathy or bruits. CHEST: Clear to auscultation. CARDIOVASCULAR: Revealed a regular rate and rhythm without murmur, S3 or S4. ABDOMEN: Soft, supple without mass, organomegaly or tenderness except for some epigastric pain to palpation without rebound or guarding. EXTREMITIES: Reveal no cyanosis, clubbing or edema. SKIN: Evaluation revealed no suspicious nevi. ASSESSMENT/PLAN: 1. The patient was set up for screening colonoscopy, deemed to be a higher than average risk due to family history for colon cancer in a first degree relative, relatively young age as he from his disease at the age of 65, so would like to have been present for several years prior. 2. Diagnostic EGD due to increased reflux symptoms with epigastric pain despite b.i.d. H2 dorothy therapy. The patient was set up for procedure and Prep instructions with the Santiago-prep kit were given. Questions were answered. Job ID: [id number] DocumentID: [id number] Dictated Date: 11/12/2018 17:36:47 Surfboard Designer Date: 11/12/2018 18:03:06 Dictated By: MICHAEL DISLA MD [facility]
[~2018-12-05] VITALS: Ht 162.6 cm; Wt 59.0 kg
[2018-12-05] VITALS (17 sets, daily range): BP systolic 87–121; BP diastolic 50–78
[2018-12-05] MEDS ORDERED: D5 LR IV SOLUTION 1,000 ML IV ONE (07:07)
[2018-12-05] MEDS ORDERED: MIDAZOLAM 2 MG/2 ML (VERSED) VIAL IVP ONE (07:15)
[2018-12-05] MEDS ORDERED: D5 LR IV SOLUTION 1,000 ML IV STA (07:15)
[2018-12-05] MEDS ORDERED: HURRICAINE EXT TUBE (BENZOCAINE) XX PRN (07:15)
[2018-12-05] MEDS ORDERED: fentaNYL INJECTION 100 MCG/2 ML AMP IVP ONE (07:15)
[2018-12-05] MEDS ORDERED: LIDOCAINE JELLY 2% 6 ML SYRINGE MM PRN (07:15)
[2018-12-05] MEDS ORDERED: MIDAZOLAM 2 MG/2 ML (VERSED) VIAL ONE ×3 (07:46→08:29)
[2018-12-05] MEDS ORDERED: fentaNYL INJECTION 100 MCG/2 ML AMP ONE (07:46)
[2018-12-05] MEDS ORDERED: LIDOCAINE JELLY 2% 6 ML SYRINGE ONE ×2 (07:46→07:57)
[2018-12-05] MEDS ORDERED: ONDANSETRON 4 MG/2 ML (SDV) Z0FRAN ONE (07:58)
--- NOTE | 2018-12-05 07:58 | Pre-Op Note & Conscious Sedat ---
Pre-Operative Progress Note H&P Reviewed The H&P was reviewed, patient examined and no changes noted. Date H&P Reviewed: Dec 05, 2018 Time H&P Reviewed: 07:40 Conscious Sedation Pre-Proced ASA Score 1 For ASA 3 and 4: Consider anesthesia and medical clearance. Also, for patients with a history of failed moderate sedation consider anesthesia. Airway Lungs Heart ASA score ASA 1: a normal healthy patient ASA 2: a patient with a mild systemic disease (mid diabetes, controlled hypertension, obesity ASA 3: a patient with a severe systemic disease that limits activity (angina, COPD, prior Myocardial infarction) ASA 4: a patient with an incapacitating disease that is a constant threat to life (CHF, renal failure) ASA 5: a moribund patient not expected to survive 24 hrs. (ruptured aneurysm) ASA 6: a declared brain- patient whose organs are being harvested. For emergent operations, add the letter E after the classification Mallampati Classification Grade 2 Sedation Plan Analgesia, Amnesia, Plan communicated to team members, Discussed options with patient/fam, Discussed risks with patient/fam The patient is an appropriate candidate to undergo the planned procedure, sedation, and anesthesia. The patient immediately re-assessed prior to indication. MICHAEL DISLA MD Dec 05, 2018 07:58
[2018-12-05] MEDS ORDERED: ONDANSETRON 4 MG/2 ML (SDV) Z0FRAN IVP ONE (09:15)
--- NOTE | 2018-12-05 14:12 | OPERATIVE REPORT ---
DATE OF SERVICE: 12/05/2018 COLONOSCOPY SUMMARY I am her primary care physician. PROCEDURE: Panendoscopy was performed for screening purposes in regards to colonoscopy and diagnostic EGD due to reflux sounding symptoms with epigastric pain despite b.i.d. H2 dorothy therapy. PROCEDURE IN DETAIL: The patient was placed in the left lateral decubitus position. Prior to undergoing colonoscopy, digital rectal evaluation was performed. Anal sphincter tone was normal and the perianal reflexes intact. No abnormalities have been noted on digital inspection of the anal canal or distal rectal vault. The colonoscope was inserted into the rectum and under direct visualization advanced to the cecum. The cecum was identified by identification of the ileocecal valve and cecal strap. Photographic documentation was obtained. Careful inspection was made as colonoscope was withdrawn. The patient had an irritable bowel type response to air insufflation and colonic manipulation. FINDINGS: There was no evidence for internal or external hemorrhoids. The rectum, sigmoid colon, descending colon, transverse colon, ascending colon and cecum were unremarkable with no evidence for diverticulum, neoplasia or vascular malformation was noted. ASSESSMENT: Normal colonoscopy to the cecum. Considering family history for colon cancer and first degree relative of her father diagnosed around the age of 83, would advise repeat screening colonoscopy at 5 years. We then proceeded with EGD evaluation. The endoscope was inserted into the oral cavity and under direct visualization, the esophagus was intubated. The endoscope was passed down the esophagus, stomach and second portion of the duodenum. Careful inspection was made as the endoscope was withdrawn. The patient tolerated the procedure well. FINDINGS: The proximal, mid and distal esophagus were unremarkable except for a small to medium size hiatal hernia. The Z-line was proximally placed at 32 cm secondary to this. The Z-line was distinct with no evidence for erosive esophagitis. Photograph was obtained and a biopsy was obtained from the Z-line. The cardia, fundus, antrum, pylorus, pyloric channel, duodenal bulb and second portion of duodenum were unremarkable. ASSESSMENT: Small to moderate size hiatal hernia was present without evidence for erosive esophagitis. No other abnormalities noted on EGD evaluation. Biopsies obtained from the Z-line for histopath evaluation also to exclude the possibility of short segment Hill's. Job ID: [id number] DocumentID: [id number] Dictated Date: 12/05/2018 09:05:47 Occupational Therapy Assistant Date: 12/05/2018 14:10:50 Dictated By: MICHAEL DISLA MD [facility]
== END 2018-12-05 10:47 | disposition home or self-care (01) ==
LOC: ENDO 07:01
PROVIDERS: ATTEND Internal Medicine
DX: Z12.11 Encounter for screening for malignant neoplasm of colon (principal); Z80.0 Family history of malignant neoplasm of digestive organs; K44.9 Diaphragmatic hernia without obstruction or gangrene; Z83.71 Family history of colonic polyps; E78.5 Hyperlipidemia, unspecified; Z79.899 Other long term (current) drug therapy

== ENCOUNTER 2019-03-18 09:30 | Outpatient (CLI) | payer BC ==
[~2019-03-18] VITALS: Ht 162 cm; Wt 59.0 kg
[2019-03-19] MEDS ORDERED: HYDR-3812 PO (08:19)
== END 2019-03-18 10:04 | disposition home or self-care (01) ==
LOC: PREOP 09:30
PROVIDERS: ATTEND Surgery
DX: Z01.818 Encounter for other preprocedural examination (principal)

== ENCOUNTER → 2019-10-05 | Outpatient (CLI) | payer BC ==
[~2019-10-05] MED LIST changes: +ACHD5005 PO
--- NOTE | 2019-10-05 13:33 | Diagnostic Imaging Report ---
INDICATION: Routine screening. COMPARISON: 07/29/2018 and 05/29/2017. TECHNIQUE: 2D and 3D bilateral screening mammography was performed with CAD. FINDINGS: Both breasts are heterogeneously dense, limiting the sensitivity of mammography. Innumerable microcalcifications in the upper-outer right breast are again noted, limiting the sensitivity of this study. Calcifications in the lateral left breast are noted but appear to be decreased when compared with the prior exam. The patient has reportedly undergone recent surgery with removal of heterogeneous tissue and calcifications in the upper outer left breast. Parenchymal density in the anterior left breast just lateral to the nipple line on the CC view and slightly cephalad is noted and appears more prominent on today's study. Additional views and ultrasound would be recommended for further evaluation. This could represent glandular tissue. No other suspicious abnormality is seen. The axillae are unremarkable. IMPRESSION: Left breast density. This could potentially be post surgical; however, additional views are recommended for further evaluation. ACR BI-RADS Category 0: Incomplete. (Needs additional imaging evaluation). Result letter will be mailed to the patient. Note: At least 10% of breast cancer is not imaged by mammography. Dictated by: Dictated on workstation # [id number]
== END ==
LOC: RAD 11:26
PROVIDERS: ATTEND Obstetrics & Gynecology
DX: Z12.31 Encounter for screening mammogram for malignant neoplasm of breast (principal); R92.0 Mammographic microcalcification found on diagnostic imaging of breast
CPT/HCPCS: 77063; 77067

== ENCOUNTER → 2020-09-12 | Outpatient (CLI) | payer BC, OTHER ==
--- NOTE | 2020-09-12 12:32 | Diagnostic Imaging Report ---
INDICATION: Shortness of breath. TIME OF EXAM: 12:11 PM. COMPARISON: Correlation is made with the prior chest from 05/29/2017. FINDINGS: The heart size is normal. The pulmonary vascularity is unremarkable. The lungs are clear. No infiltrate, effusion, or pneumothorax is detected. IMPRESSION: No acute cardiopulmonary process is detected. Dictated by: Dictated on workstation # [id number]
== END ==
LOC: RAD 11:47
PROVIDERS: ATTEND Obstetrics & Gynecology
DX: R06.02 Shortness of breath (principal); R89.7 Abnormal histological findings in specimens from other organs, systems and tissues
CPT/HCPCS: 71046

== ENCOUNTER → 2021-09-20 | Outpatient (CLI) | payer OTHER ==
[2021-09-20 12:34] LABS: BASOPHILS # (AUTO) 0.1 10^3/uL (0.0-0.1); BASOPHILS % (AUTO) 1 % (0-10); EOSINOPHILS # (AUTO) 0.1 10^3/uL (0.0-0.3); EOSINOPHILS % (AUTO) 1 % (0-10); HEMATOCRIT 40 % (35-52); HEMOGLOBIN 13.1 g/dL (11.5-16.0); LYMPHOCYTES # (AUTO) 2.1 10^3/uL (1.0-4.0); LYMPHOCYTES % (AUTO) 32 % (12-44); MEAN CORPUSCULAR HEMOGLOBIN 29 pg (25-34); MEAN CORPUSCULAR HGB CONC 33 g/dL (32-36); MEAN CORPUSCULAR VOLUME 89 fL (80-99); MEAN PLATELET VOLUME 10.9 fL (9.0-12.2); MONOCYTES # (AUTO) 0.5 10^3/uL (0.0-1.0); MONOCYTES % (AUTO) 8 % (0-12); NEUTROPHILS # (AUTO) 3.8 10^3/uL (1.8-7.8); NEUTROPHILS % (AUTO) 58 % (42-75); PLATELET COUNT 285 10^3/uL (130-400); WHITE BLOOD COUNT 6.6 10^3/uL (4.3-11.0)
[2021-09-20 12:48] LABS: BILIRUBIN,TOTAL 0.6 MG/DL (0.1-1.0); CALCIUM 9.1 MG/DL (8.5-10.1); CREATININE SERUM 0.75 MG/DL (0.60-1.30); POTASSIUM 3.9 MMOL/L (3.6-5.0); TOTAL PROTEIN 6.2 GM/DL (6.4-8.2)
== END ==
LOC: LABNPT 12:27
PROVIDERS: ATTEND Obstetrics & Gynecology
DX: Z01.419 Encounter for gynecological examination (general) (routine) without abnormal findings (principal); Z12.39 Encounter for other screening for malignant neoplasm of breast
CPT/HCPCS: 80053; 80061; 84443; 85025

== ENCOUNTER → 2022-02-16 | Outpatient (CLI) | payer OTHER ==
--- NOTE | 2022-02-16 12:57 | Diagnostic Imaging Report ---
Indication: Routine screening. Comparison is made with prior mammograms 10/05/2019 and 07/29/2018. 2-D and 3-D bilateral screening mammography was performed with CAD. Both breasts are heterogeneously dense, limiting the sensitivity of mammography. Microcalcifications in the outer right breast appears stable. The density in the upper slightly outer retroareolar left breast previously described appears stable. No new mass is identified. Axillae are unremarkable. IMPRESSION: BI-RADS Category 2. No mammographic features suspicious for malignancy are identified. ACR BI-RADS Category 2: Benign findings. Result letter will be mailed to the patient. Note: At least 10% of breast cancer is not imaged by mammography. Dictated by: Dictated on workstation # [id number]
== END ==
LOC: RAD 11:11
PROVIDERS: ATTEND Obstetrics & Gynecology
DX: Z12.31 Encounter for screening mammogram for malignant neoplasm of breast (principal)
CPT/HCPCS: 77063; 77067